=== PATIENT | male | born 1960 | race Caucasian/White ===

== ENCOUNTER 2017-09-03 08:03 | Day surgery (SDC) | payer BC ==
[2017-09-03] MEDS ORDERED: NS 1,000 ML IV (09:00)
[2017-09-03] MEDS ORDERED: PROPOFOL 200 MG/20 ML VIAL As Ordered (09:02)
== END 2017-09-03 09:58 | disposition home or self-care (01) ==
LOC: M OPP 08:03
DX: Z12.11 Encounter for screening for malignant neoplasm of colon (principal); Z86.010 Personal history of colon polyps; D12.5 Benign neoplasm of sigmoid colon; D12.3 Benign neoplasm of transverse colon; D12.2 Benign neoplasm of ascending colon; K57.30 Diverticulosis of large intestine without perforation or abscess without bleeding; K64.8 Other hemorrhoids; K21.9 Gastro-esophageal reflux disease without esophagitis; R06.83 Snoring; F17.210 Nicotine dependence, cigarettes, uncomplicated; Z80.9 Family history of malignant neoplasm, unspecified
CPT/HCPCS: 45385

== ENCOUNTER → 2020-09-06 | Outpatient (CLI) | payer BC ==
--- NOTE | 2020-09-06 10:19 | REP ---
INDICATION: PAIN COMPARISON: None. TECHNIQUE: AP, lateral, bilateral oblique, and coned-down views of the lumbar spine. FINDINGS: Alignment is maintained. Vertebral bodies are intact. No acute fracture/compression injury or subluxation. Advanced multilevel degenerative changes include endplate sclerosis, disc space narrowing, osteophytosis and facet hypertrophy. Mild chronic retrolisthesis at L3-4 suggested IMPRESSION: Advanced multilevel degenerative changes suggested. No acute fracture/compression injury. <Electronically signed by Mainor Saucedo > 09/06/20 [id number]
== END ==
LOC: M WUC 09:11
PROVIDERS: ATTEND Physician Assistant Medical
DX: M54.5 Low back pain (principal)

== ENCOUNTER → 2021-10-17 | Outpatient (REF) | payer BC | LOC: M LAB REF 11:49 | PROVIDERS: ATTEND Physician Assistant Medical | DX: R20.2 Paresthesia of skin (principal) ==

== ENCOUNTER → 2021-10-24 | Outpatient (CLI) | payer BC | LOC: M PLAIMG 08:13 | PROVIDERS: ATTEND Physician Assistant Medical | DX: R06.02 Shortness of breath (principal) ==

== ENCOUNTER → 2022-01-20 | Outpatient (REF) | payer BC | LOC: M LAB REF 12:16 | PROVIDERS: ATTEND Nurse Practitioner Adult Health | DX: Z11.59 Encounter for screening for other viral diseases (principal) ==

== ENCOUNTER → 2022-02-12 | Outpatient (CLI) | payer BC ==
[~2022-02-12] MED LIST: PROHANCE 279.3MG/ML 15ML VIAL ONE
== END ==
LOC: M PLAIMG 09:25
PROVIDERS: ATTEND Nurse Practitioner Adult Health
DX: R53.1 Weakness (principal)
CPT/HCPCS: 70553; A9576

== ENCOUNTER → 2022-03-06 | Outpatient (REF) | payer BC | LOC: M LAB REF 16:48 | PROVIDERS: ATTEND Surgery | DX: L72.11 Pilar cyst (principal) ==

== ENCOUNTER → 2022-07-11 | Outpatient (CLI) | payer BC | LOC: M WUC 09:49 | PROVIDERS: ATTEND Physician Assistant Medical | DX: M25.561 Pain in right knee (principal); M25.521 Pain in right elbow ==

== ENCOUNTER → 2022-12-24 | Outpatient (REF) | payer BC ==
[2022-12-24 12:53] LABS: BASO # 0.1 10^3/uL (0.0-0.2); BASO % 0.5 % (0.0-1.0); EOS # 0.1 10^3/uL (0.0-0.5); EOS % 0.6 % (0.0-3.0); HEMATOCRIT 47.9 % (42.0-52.0); HEMOGLOBIN 15.9 g/dl (13.5-17.5); LYMPH # 1.6 10^3/uL (1.5-5.0); LYMPH % 16.2 % (24.0-44.0); MEAN CORPUSCULAR HEMOGLOBIN 32.9 pg (27.0-33.0); MEAN CORPUSCULAR HGB CONC 33.2 g/dl (32.0-36.5); MEAN CORPUSCULAR VOLUME 99.2 fl (80.0-96.0); MONO # 0.7 10^3/uL (0.0-0.8); MONO % 6.9 % (2.0-8.0); NEUTROPHILS # 7.5 10^3/uL (1.5-8.5); NEUTROPHILS % 75.5 % (36.0-66.0); PLATELET COUNT, AUTOMATED 255 10^3/uL (150-450); RED BLOOD COUNT 4.83 10^6/uL (4.30-6.10); WHITE BLOOD COUNT 9.9 10^3/uL (4.0-10.0)
[2022-12-24 13:18] LABS: ALBUMIN 3.5 G/DL (3.2-5.2); ALKALINE PHOSPHATASE 90 U/L (46-116); ALT/SGPT 21 U/L (7.0-40); AST/SGOT 11 U/L (<34); BILIRUBIN,TOTAL 0.5 MG/DL (0.3-1.2); BLOOD UREA NITROGEN 12 MG/DL (9-23); CARBON DIOXIDE LEVEL 27 MMOL/L (20-31); CHLORIDE LEVEL 107 MMOL/L (98-107); CHOLESTEROL LEVEL 166 MG/DL (<200); GLOMERULAR FILTRATION RATE > 60.0 (>49); GLUCOSE, FASTING 105 MG/DL (74-106); HDL CHOLESTEROL 33.2 MG/DL (>40); LDL CHOLESTEROL 110.6 MG/DL (<100); NON-HDL-C 132.8 MG/DL; POTASSIUM SERUM 4.2 MMOL/L (3.5-5.1); SODIUM LEVEL 141 MMOL/L (136-145); THYROID STIMULATING HORMONE 1.803 uIU/ML (0.55-4.78); TOTAL PROTEIN 6.2 G/DL (5.7-8.2); TRIGLYCERIDES LEVEL 111 MG/DL (<150)
== END ==
LOC: M LAB REF 11:41
PROVIDERS: ATTEND Physician Assistant Medical
DX: J44.9 Chronic obstructive pulmonary disease, unspecified (principal); R25.1 Tremor, unspecified; R53.1 Weakness

== ENCOUNTER → 2023-09-07 | Outpatient (CLI) | payer BC ==
[~2023-09-07] MED LIST changes: +ALBU8.5H INH; +BREO1INH INH; +BUPR-597 PO; -PROHANCE 279.3MG/ML 15ML VIAL ONE
== END ==
LOC: M WUC 14:35
PROVIDERS: ATTEND Nurse Practitioner Family
DX: M25.562 Pain in left knee (principal)

== ENCOUNTER → 2024-01-20 | Outpatient (CLI) | payer OTHER ==
[~2024-01-20] MED LIST changes: +PROHANCE 279.3MG/ML 15ML VIAL ONE; +PROHANCE 279.3MG/ML 5ML VIAL ONE
== END ==
LOC: M PLAIMG 12:57
PROVIDERS: ATTEND Physician Assistant Medical
DX: R25.1 Tremor, unspecified (principal)

== ENCOUNTER 2024-02-12 08:58 | Day surgery (SDC) | payer OTHER ==
[~2024-02-12] VITALS: Ht 185.4 cm; Wt 109.8 kg
[~2024-02-12 08:58] MED LIST changes: +NS 250 ML IV ONE; -PROHANCE 279.3MG/ML 15ML VIAL ONE; -PROHANCE 279.3MG/ML 5ML VIAL ONE
[2024-02-12] MEDS ORDERED: propofoL 200 MG/20 ML VIAL As Ordered ONE (10:13)
[2024-02-12 10:45] VITALS: BP 125/69; O2SAT 98
== END 2024-02-12 10:52 | disposition home or self-care (01) ==
LOC: M OPP 08:58
PROVIDERS: ATTEND Surgery
DX: Z12.11 Encounter for screening for malignant neoplasm of colon (principal); K64.1 Second degree hemorrhoids; K57.30 Diverticulosis of large intestine without perforation or abscess without bleeding; K21.9 Gastro-esophageal reflux disease without esophagitis; Z86.0100 Personal history of colon polyps, unspecified; J44.9 Chronic obstructive pulmonary disease, unspecified; F17.210 Nicotine dependence, cigarettes, uncomplicated; Z79.899 Other long term (current) drug therapy

== ENCOUNTER → 2024-03-17 | Outpatient (CLI) | payer OTHER ==
[~2024-03-17] MED LIST changes: -NS 250 ML IV ONE
== END ==
LOC: M RAD 15:33
PROVIDERS: ATTEND Physician Assistant Medical
DX: F17.210 Nicotine dependence, cigarettes, uncomplicated (principal)

== ENCOUNTER 2024-03-26 12:35 | Observation (INO) | payer OTHER ==
[~2024-03-26] VITALS: Ht 185.4 cm; Wt 111.4 kg
[2024-03-26] MEDS ORDERED: BUPR150T12 PO (12:55)
[2024-03-26] MEDS ORDERED: KETOROLAC 30 MG/ML 1ML VIAL IM ONE (14:00)
[2024-03-26 14:45] LABS: BASO # 0.1 10^3/uL (0.0-0.2); BASO % 0.4 % (0.0-1.0); EOS # 0.1 10^3/uL (0.0-0.5); EOS % 0.5 % (0.0-3.0); HEMATOCRIT 46.9 % (42.0-52.0); HEMOGLOBIN 16.3 g/dl (13.5-17.5); LYMPH # 1.4 10^3/uL (1.5-5.0); MEAN CORPUSCULAR HEMOGLOBIN 33.5 pg (27.0-33.0); MEAN CORPUSCULAR HGB CONC 34.8 g/dl (32.0-36.5); MEAN CORPUSCULAR VOLUME 96.5 fl (80.0-96.0); MONO # 0.7 10^3/uL (0.0-0.8); MONO % 5.9 % (2.0-8.0); NEUTROPHILS # 9.5 10^3/uL (1.5-8.5); NEUTROPHILS % 80.9 % (36.0-66.0); PLATELET COUNT, AUTOMATED 251 10^3/uL (150-450); RED BLOOD COUNT 4.86 10^6/uL (4.30-6.10); WHITE BLOOD COUNT 11.8 10^3/uL (4.0-10.0)
[2024-03-26] MEDS: KETOROLAC 30 MG/ML 1ML VIAL IV ONE (14:45)
[2024-03-26 15:02] LABS: ERYTHROCYTE SEDIMENTATION RATE 4 mm/hr (0-20)
[2024-03-26 15:07] LABS: C REACTIVE PROTEIN QUANTITATIV < 0.40 MG/DL (<1.0)
[2024-03-26 15:08] LABS: BLOOD UREA NITROGEN 12 MG/DL (9-23); CALCIUM LEVEL 9.2 MG/DL (8.3-10.6); CARBON DIOXIDE LEVEL 28 MMOL/L (20-31); CHLORIDE LEVEL 108 MMOL/L (98-107); CREATININE FOR GFR 1.19 MG/DL (0.70-1.30); GLOMERULAR FILTRATION RATE > 60.0 (>49); GLUCOSE, FASTING 94 MG/DL (74-106); POTASSIUM SERUM 4.7 MMOL/L (3.5-5.1); SODIUM LEVEL 140 MMOL/L (136-145)
[2024-03-26] MEDS: BOOSTRIX VACCINE (TETANUS/DIPHTH/ACEL. PERTUSSIS) 0.5ML SYR IM.IMMUN ONE (16:46)
[2024-03-26] MEDS: LIDOCAINE 1% MDV 20ML VIAL SC ONE (16:46)
[2024-03-26] MEDS: DERMABOND TOPICAL SKIN ADHESIVE TOP ONE (16:47)
[2024-03-26] MEDS ORDERED: CEPH500C PO (17:38)
[2024-03-26] MEDS: NICOTINE 21MG/24HR 1 EA TRANSDERMAL TD ONE (18:18)
[2024-03-26] MEDS: CEPHALEXIN 500 MG CAP PO ONE (18:24)
[2024-03-26] MEDS: ceFAZolin SOD 2 GM in IV 1 EA IV ONE (18:39)
[2024-03-26] MEDS ORDERED: MOM 30ML SUSPENSION UDC PO PRN (19:00)
[2024-03-26] MEDS ORDERED: ACETAMINOPHEN 325 MG TAB PO PRN (19:00)
[2024-03-26] MEDS ORDERED: MAALOX 30 ML SUSP *UDC PO PRN (19:00)
[2024-03-26] MEDS ORDERED: NALOXONE INJ 0.4MG/1ML VIAL IV PRN (19:20)
[2024-03-26] MEDS ORDERED: MORPHINE 2 MG/ML 1ML VIAL IV PRN ×2 (19:20)
[2024-03-26] MEDS ORDERED: ONDANSETRON 4MG TAB PO PRN (19:20)
[2024-03-26] MEDS ORDERED: ACETAMINOPHEN *IV* 1,000 MG in IV 1 EA IV PRN (19:20)
[2024-03-26] MEDS ORDERED: NICOTINE 21MG/24HR 1 EA TRANSDERMAL TD PRN (19:20)
[2024-03-26] MEDS ORDERED: METHOCARBAMOL 1,000 MG/10 ML VIAL IV PRN (19:20)
[2024-03-26] MEDS: LIDOCAINE 1% SDV 30ML VIAL As Ordered ONE (19:34)
[2024-03-26 19:46] LABS: ALBUMIN 3.7 G/DL (3.2-5.2); ALKALINE PHOSPHATASE 99 U/L (40-129); ALT/SGPT 32 U/L (7.0-40); AST/SGOT 15 U/L (<34); BILIRUBIN,DIRECT 0.2 MG/DL (<0.4); BILIRUBIN,TOTAL 0.6 MG/DL (0.3-1.2); MAGNESIUM LEVEL 2.1 MG/DL (1.8-2.4); TOTAL PROTEIN 7.1 G/DL (5.7-8.2)
[2024-03-26] MEDS ORDERED: oxyCODONE 5MG TAB PO PRN (20:05)
[2024-03-26] MEDS ORDERED: ONDANSETRON 4MG 2ML VIAL IV PRN (20:05)
[2024-03-26] MEDS ORDERED: fentaNYL 100 MCG/2 ML INJECTION IV PRN (20:05)
[2024-03-26] MEDS ORDERED: MEPERIDINE 25 MG/ML 1ML VIAL IV PRN (20:05)
[2024-03-26] MEDS ORDERED: METOCLOPRAMIDE INJ 10MG/2ML VIAL IV PRN (20:05)
[2024-03-26] MEDS ORDERED: diphenhydrAMINE 50MG/ML VIAL IV PRN (20:05)
[2024-03-26] MEDS: LR 1,000 ML IV SCH (22:00)
[2024-03-26 22:20] VITALS: BP 134/74; TEMP 97.2; O2SAT 96
[2024-03-26 22:20] LABS: HEMOGLOBIN A1c 5.2 % (4.0-6.0)
[2024-03-26] MEDS: DOCUSATE SODIUM 100MG CAPSULE PO SCH (22:35)
[2024-03-26 23:00] VITALS: BP 146/86; TEMP 97.2; O2SAT 96
[2024-03-26 23:30] VITALS: BP 129/75; TEMP 97.3; O2SAT 96
[2024-03-26 23:31] LABS: INR 0.95; PARTIAL THROMBOPLASTIN TIME 26.9 SECONDS (24.8-34.2)
[2024-03-26] MEDS ORDERED: MULT-90 PO (23:58)
[2024-03-27] MEDS ORDERED: HOME MED LIST COMPLETE! XX SCH
[2024-03-27 00:30] VITALS: BP 122/74; TEMP 97.3; O2SAT 96
[2024-03-27 01:30] VITALS: BP 122/73; TEMP 97.5; O2SAT 97
[2024-03-27 02:30] VITALS: BP 122/73; TEMP 97.5; O2SAT 93
[2024-03-27 07:30] VITALS: BP 118/68; TEMP 97.5; O2SAT 96
[2024-03-27 08:04] LABS: HEMATOCRIT 41.7 % (42.0-52.0); HEMOGLOBIN 14.5 g/dl (13.5-17.5); MEAN CORPUSCULAR HEMOGLOBIN 33.3 pg (27.0-33.0); MEAN CORPUSCULAR HGB CONC 34.8 g/dl (32.0-36.5); MEAN CORPUSCULAR VOLUME 95.6 fl (80.0-96.0); PLATELET COUNT, AUTOMATED 230 10^3/uL (150-450); RED BLOOD COUNT 4.36 10^6/uL (4.30-6.10); WHITE BLOOD COUNT 11.3 10^3/uL (4.0-10.0)
[2024-03-27] MEDS: ASPIRIN 325 MG TAB PO SCH (08:44)
[2024-03-27 08:49] LABS: BASO % 0.2 % (0.0-1.0); LYMPH # 1.1 10^3/uL (1.5-5.0); LYMPH % 9.4 % (24.0-44.0); MONO # 0.5 10^3/uL (0.0-0.8); MONO % 3.9 % (2.0-8.0); NEUTROPHILS % 86.2 % (36.0-66.0)
[2024-03-27 08:55] LABS: C REACTIVE PROTEIN QUANTITATIV < 0.40 MG/DL (<1.0)
[2024-03-27 08:58] LABS: ALBUMIN 3.1 G/DL (3.2-5.2); ALKALINE PHOSPHATASE 85 U/L (40-129); ALT/SGPT 25 U/L (7.0-40); AST/SGOT 11 U/L (<34); BILIRUBIN,TOTAL 0.4 MG/DL (0.3-1.2); BLOOD UREA NITROGEN 13 MG/DL (9-23); CALCIUM LEVEL 8.7 MG/DL (8.3-10.6); CARBON DIOXIDE LEVEL 24 MMOL/L (20-31); CHLORIDE LEVEL 108 MMOL/L (98-107); CREATININE FOR GFR 1.15 MG/DL (0.70-1.30); GLOMERULAR FILTRATION RATE > 60.0 (>49); GLUCOSE, FASTING 163 MG/DL (74-106); POTASSIUM SERUM 4.8 MMOL/L (3.5-5.1); SODIUM LEVEL 139 MMOL/L (136-145); TOTAL PROTEIN 5.9 G/DL (5.7-8.2)
[2024-03-27] MEDS ORDERED: CEPH250T PO (11:14)
[2024-03-27] MEDS ORDERED: ASPI-1 PO (11:14)
[2024-03-27 11:30] VITALS: BP 125/70; TEMP 98.1; O2SAT 98
== END 2024-03-27 12:30 | disposition home or self-care (01) ==
LOC: M ED 12:35 → M ED INP 12:36 → M MS5PR 22:20
PROVIDERS: ADMIT Student in an Organized Health Care Education/Training Program; ATTEND Hospitalist
DX: S92.424B Nondisplaced fracture of distal phalanx of right great toe, initial encounter for open fracture (principal); S92.531A Displaced fracture of distal phalanx of right lesser toe(s), initial encounter for closed fracture; M85.871 Other specified disorders of bone density and structure, right ankle and foot; W20.8XXA Other cause of strike by thrown, projected or falling object, initial encounter; Y92.096 Garden or yard of other non-institutional residence as the place of occurrence of the external cause; Y93.9 Activity, unspecified; Y99.9 Unspecified external cause status; J44.9 Chronic obstructive pulmonary disease, unspecified; F41.9 Anxiety disorder, unspecified; R25.1 Tremor, unspecified; Z98.890 Other specified postprocedural states; Z79.899 Other long term (current) drug therapy; Z79.51 Long term (current) use of inhaled steroids; F17.210 Nicotine dependence, cigarettes, uncomplicated
CPT/HCPCS: 12001; 28505; 36415; 73630; 76000; 80048; 80053; 80076; 83036; 83735; 85025; 85027; 85610; 85652; 85730; 86140; 88304; 88311; 90471; 90715; 93005; 96374; 96375; 97161; 99284; J0665; J0690; J1885

== ENCOUNTER → 2024-04-18 | Outpatient (CLI) | payer OTHER ==
[~2024-04-18] MED LIST changes: +ASPI-1 PO; +BUPR150T12 PO; +CEPH250T PO; +CEPH500C PO; +MULT-90 PO
== END ==
LOC: M SOG 07:52
PROVIDERS: ATTEND Physician Assistant
DX: S92.421D Displaced fracture of distal phalanx of right great toe, subsequent encounter for fracture with routine healing (principal)

== ENCOUNTER → 2024-05-12 | Outpatient (CLI) | payer OTHER | LOC: M SOG 07:50 | PROVIDERS: ATTEND Physician Assistant | DX: S92.421D Displaced fracture of distal phalanx of right great toe, subsequent encounter for fracture with routine healing (principal); W18.30XA Fall on same level, unspecified, initial encounter; Y92.009 Unspecified place in unspecified non-institutional (private) residence as the place of occurrence of the external cause ==

== ENCOUNTER → 2024-06-23 | Outpatient (CLI) | payer OTHER ==
[2024-06-23 14:41] LABS: WHITE BLOOD COUNT 7.9 10^3/uL (4.0-10.0)
== END ==
LOC: M PLALAB 11:20
PROVIDERS: ATTEND Orthopaedic Surgery
DX: S92.421D Displaced fracture of distal phalanx of right great toe, subsequent encounter for fracture with routine healing (principal)

== ENCOUNTER → 2024-06-23 | Outpatient (CLI) | payer OTHER | LOC: M SOG 07:54 | PROVIDERS: ATTEND Physician Assistant | DX: S92.421D Displaced fracture of distal phalanx of right great toe, subsequent encounter for fracture with routine healing (principal) ==

== ENCOUNTER → 2024-08-04 | Outpatient (CLI) | payer OTHER | LOC: M SOG 08:34 | PROVIDERS: ATTEND Physician Assistant | DX: S92.421D Displaced fracture of distal phalanx of right great toe, subsequent encounter for fracture with routine healing (principal); W18.30XD Fall on same level, unspecified, subsequent encounter ==

== ENCOUNTER → 2025-03-29 | Outpatient (CLI) | payer OTHER ==
[~2025-03-29] MED LIST changes: -BUPR-597 PO; +BUPR-766 PO
== END ==
LOC: M RAD 13:15
PROVIDERS: ATTEND Physician Assistant Medical
DX: F17.211 Nicotine dependence, cigarettes, in remission (principal)